=== PATIENT | female | born 1965 | race Caucasian/White ===

== ENCOUNTER 2020-05-18 10:41 | Emergency (ER) | payer OTHER ==
[2020-05-18] MEDS ORDERED: Sodium Chloride 0.9% 2.5 ML Syringe FLUSH PRN (11:07)
[2020-05-18] MEDS ORDERED: Sodium Chloride 0.9% 10 ML Syringe FLUSH PRN (11:07)
--- NOTE | 2020-05-18 11:11 | EDM.PDOC ---
ED HPI GENERAL MEDICAL PROBLEM - General Stated Complaint: CHEST PAIN Time Seen by Provider: 05/18/20 10:52 - History of Present Illness INITIAL COMMENTS - FREE TEXT/NARRATIVE: History of present illness: [] Patient had pounding palpitations on May 01 the antibiotic her for 2 days. She had 1 normal day and then after that she has had musculoskeletal type pain in the left chest. Is worse with movement to the left. Worse with using her left arm or holding weight with her left arm. It also gets worse when she walks or exerts herself or stands upright. It is better when she rests. There is no shortness of breath or diaphoresis. There is no nausea. The patient has no known injury. But when she tries to lift something with her left arm the pain is reproduced. Patient smoked from ages [age]. She has a very strong family history of multiple relatives with severe coronary vessel disease starting in her 30s. Treated for hypertension and cholesterol but she does not have a history of diabetes. She no longer smokes since age 27. Review of systems: As per history of present illness and below otherwise all systems reviewed and negative. Past medical history: As per history of present illness and as reviewed below otherwise noncontributory. Surgical history: As per history of present illness and as reviewed below otherwise noncontributory. Social history: No reported history of drug or alcohol abuse. Family history: As per history of present illness and as reviewed below otherwise noncontributory. Physical exam: Constitutional - well developed, well-nourished and in no acute distress HEENT - normocephalic, no evidence of trauma - external nose and mouth normal - no mass in neck and no JVD - mucosae moist EYES - full EOM, PERRL, no icterus - no evidence of inflammation, injection, or drainage Respiratory - no respiratory distress, equal bilateral expansion, lungs clear to auscultation and no abnormal lung sounds Cardiovascular - Regular Rhythm with S1 and S2 appreciated and no murmur, gallop or rub. GI - abdomen soft without distension or organomegaly - normal bowel sounds - no guard or rebound Musculoskeletal tenderness in the left chest wall in the area to the pain in the left breast. This reproduces her pain. She also reproduces the Viactiv resisted abduction and extension of the right left shoulder. No gross deformity of long bones or joints - no tenderness, swelling or edema Neurologic - Alert and oriented times four - CN II-XII grossly intact - motor sensory and coordination symmetrically normal Psychiatric - appropriate mood and affect with normal thought content Hematologic - No petechiae or purpura - mucosa appropriate color and sclera not pale - normal nail bed color and refill Integument - no rash or evidence of trauma - normal turgor Diagnostics: [] Therapeutics: [] Impression: [] Plan: [] Definitive disposition and diagnosis as appropriate pending reevaluation and review of above. chest Pain Score (Numeric/FACES): 6 - Related Data Allergies Allergy/AdvReac Type Severity Reaction Status Date / Time aspirin Allergy Rash Verified 05/18/20 11:18 codeine Allergy Cannot Verified 05/18/20 11:18 Remember Penicillins Allergy Difficulty Verified 05/18/20 11:18 Breathing MOLD Allergy Other Uncoded 05/18/20 11:18 Home Meds: Home Meds Lisinopril 5 tab PO DAILY 02/13/16 [History] Omeprazole 40 mg PO BID 02/13/16 [History] hydrOXYzine HCL [hydrOXYzine] 50 mg PO BEDTIME 02/13/16 [History] Past Medical History Cardiovascular History: Reports: Hypertension Respiratory History: Reports: Asthma Gastrointestinal History: Reports: Other (See Below) Other Gastrointestinal History: crohns - Past Surgical History Musculoskeletal Surgical History: Reports: Arthroscopic Knee Social & Family History - Family History Family Medical History: No Pertinent Family History - Caffeine Use Caffeine Use: Reports: Soda ED ROS GENERAL - Review of Systems Review Of Systems: Comprehensive ROS is negative, except as noted in HPI. ED EXAM, GENERAL - Physical Exam Exam: See Below Free Text/Narrative:: My physical exam as in the HPI Course - Vital Signs Text/Narrative:: 11:47 AM on review of the patient's risk factors her heart score would be high enough that every time she had any kind of chest complaints she had had to be admitted to the hospital for an anatomic study. However she is not smoking and had a normal catheterization about 7 years ago without much trouble since. Her chest wall pain is reproducible and very suggestive of pulled muscle. There is nothing in her history to assess as this is likely coronary vessel disease. The patient understands and I am to send her home with anti-inflammatories and [facility]. I think she had a unrelated palpitation on May 01 and she has it periodically and will [facility] for [facility]. Last Recorded V/S: Last Vital Signs Temp 36.4 C 05/18/20 10:41 Pulse 91 05/18/20 11:30 Resp 17 05/18/20 11:30 BP 137/76 05/18/20 11:30 Pulse Ox 95 05/18/20 11:30 - Orders/Labs/Meds Orders: Active Orders 24 hr Category Date Time Status EKG Documentation Completion [RC] AM Care 05/18/20 11:07 Active Chest 1V Frontal [CR] Stat Exams 05/18/20 11:08 Taken Sodium Chloride 0.9% [Saline Flush] Med 05/18/20 11:07 Active 10 ml FLUSH ASDIRECTED PRN Sodium Chloride 0.9% [Saline Flush] Med 05/18/20 11:07 Active 2.5 ml FLUSH ASDIRECTED PRN Saline Lock Insert [OM.PC] Stat Oth 05/18/20 11:07 Ordered Medication Orders Sodium Chloride (Sodium Chloride 0.9% 10 Ml Syringe) 10 ml FLUSH ASDIRECTED PRN PRN Reason: Keep Vein Open Last Admin: 05/18/20 11:18 Dose: 10 ml Documented by: JAZMINE Sodium Chloride (Sodium Chloride 0.9% 2.5 Ml Syringe) 2.5 ml FLUSH ASDIRECTED PRN PRN Reason: Keep Vein Open Last Admin: 05/18/20 11:18 Dose: 2.5 ml Documented by: JAZMINE Labs: Laboratory Tests 05/18/20 05/18/20 Range/Units 10:45 10:45 WBC 6.10 (4.0-11.0) K/uL RBC 4.90 (4.30-5.90) M/uL Hgb 15.0 (12.0-16.0) g/dL Hct 44.3 (36.0-46.0) % MCV 90.4 (80.0-98.0) fL MCH 30.6 (27.0-32.0) pg MCHC 33.9 (31.0-37.0) g/dL RDW Std Deviation 42.7 (28.0-62.0) fl RDW Coeff of Dorota 13 (11.0-15.0) % Plt Count 458 H (150-400) K/uL MPV 8.90 (7.40-12.00) fL Neut % (Auto) 59.5 (48.0-80.0) % Lymph % (Auto) 31.6 (16.0-40.0) % [place] % (Auto) 6.1 (0.0-15.0) % Eos % (Auto) 2.1 (0.0-7.0) % Baso % (Auto) 0.7 (0.0-1.5) % Neut # (Auto) 3.6 (1.4-5.7) K/uL Lymph # (Auto) 1.9 (0.6-2.4) K/uL [place] # (Auto) 0.4 (0.0-0.8) K/uL Eos # (Auto) 0.1 (0.0-0.7) K/uL Baso # (Auto) 0.0 (0.0-0.1) K/uL Nucleated RBC % 0.0 /100WBC Nucleated RBCs # 0 K/uL Sodium 140 (136-145) mmol/L Potassium 4.0 (3.5-5.1) mmol/L Chloride 103 (98-107) mmol/L Carbon Dioxide 25.4 (21.0-32.0) mmol/L BUN 14 (7.0-18.0) mg/dL Creatinine 1.0 (0.6-1.0) mg/dL Est Cr Clr Drug Dosing TNP Estimated GFR (MDRD) 58.2 ml/min Glucose 106 (74-106) mg/dL Calcium 9.8 (8.5-10.1) mg/dL Total Bilirubin 0.3 (0.2-1.0) mg/dL AST 24 (15-37) IU/L ALT 49 (14-63) IU/L Alkaline Phosphatase 96 (46-116) U/L Troponin I < 0.050 (0.000-0.056) ng/mL Total Protein 8.0 (6.4-8.2) g/dL Albumin 4.1 (3.4-5.0) g/dL Globulin 3.9 (2.6-4.0) g/dL Albumin/Globulin Ratio 1.1 (0.9-1.6) Lipase 109 (73-393) U/L Meds: Medications Generic Name Dose Route Start Last Admin Trade Name Venancio PRN Reason Stop Dose Admin Sodium Chloride 10 ml 05/18/20 11:07 05/18/20 11:18 Sodium Chloride 0.9% 10 Ml Syringe FLUSH 10 ml ASDIRECTED PRN Administration Keep Vein Open Sodium Chloride 2.5 ml 05/18/20 11:07 05/18/20 11:18 Sodium Chloride 0.9% 2.5 Ml Syringe FLUSH 2.5 ml ASDIRECTED PRN Administration Keep Vein Open Discontinued Medications Generic Name Dose Route Start Last Admin Trade Name Ryanq PRN Reason Stop Dose Admin Ketorolac Tromethamine 15 mg 05/18/20 11:16 05/18/20 11:17 Ketorolac 15 Mg/Ml Sdv IVPUSH 05/18/20 11:17 15 mg ONETIME ONE Administration Ketorolac Tromethamine Confirm 05/18/20 11:15 Ketorolac 15 Mg/Ml Sdv Administered 05/18/20 11:16 Dose 15 mg .ROUTE .STK-MED ONE Departure - Departure Time of Disposition: 11:46 Disposition: Home, Self-Care 01 Condition: Good Clinical Impression: Palpitations, Chest wall pain - Discharge Information Instructions: Palpitations, Chest Wall Pain, [id number] Referrals: [facility] [Primary Care Provider] - Additional Instructions: I have evaluated you for 2 events. On May 01 or thereabouts she had palpitations that were intense. [facility] may [facility] do [facility] Holter monitor or Zio patch. You also have musculoskeletal pain that is reproducible and I am not sure how you injured it or caused the inflammation but take it easy and use NSAIDs for that. Heat to the area may help since it has been going on for more than a week. [facility] - [facility] [address] [place] [address] [id number] [address] [id number] The following information is given to patients seen in the emergency department who are being discharged to home. This information is to outline your options for follow-up care. We provide all patients seen in our emergency department with a follow-up referral. The need for follow-up, as well as the timing and circumstances, are variable depending upon the specifics of your emergency department visit. If you don't have a primary care physician on staff, we will provide you with a referral. We always advise you to contact your personal physician following an emergency department visit to inform them of the circumstance of the visit and for follow-up with them and/or the need for any referrals to a consulting spe cialist. The emergency department will also refer you to a specialist when appropriate. This referral assures that you have the opportunity for follow-up care with a specialist. All of these measure are taken in an effort to provide you with optimal care, which includes your follow-up. Under all circumstances we always encourage you to contact your private physician who remains a resource for coordinating your care. When calling for follow-up care, please make the office aware that this follow-up is from your recent emergency room visit. If for any reason you are refused follow-up, please contact the [facility] Emergency Department at and asked to speak to the emergency department charge nurse. Sepsis Event Note (ED) - Focused Exam Vital Signs: Vital Signs Temp Pulse Resp BP Pulse Ox 05/18/20 11:30 91 17 137/76 95 05/18/20 10:41 36.4 C 99 17 150/113 H 96 - My Orders Last 24 Hours: My Active Orders 05/18/20 11:07 EKG Documentation Completion [RC] AM Sodium Chloride 0.9% [Saline Flush] 10 ml FLUSH ASDIRECTED PRN Sodium Chloride 0.9% [Saline Flush] 2.5 ml FLUSH ASDIRECTED PRN Saline Lock Insert [OM.PC] Stat 05/18/20 11:08 Chest 1V Frontal [CR] Stat - Assessment/Plan Last 24 Hours: My Active Orders 05/18/20 11:07 EKG Documentation Completion [RC] AM Sodium Chloride 0.9% [Saline Flush] 10 ml FLUSH ASDIRECTED PRN Sodium Chloride 0.9% [Saline Flush] 2.5 ml FLUSH ASDIRECTED PRN Saline Lock Insert [OM.PC] Stat 05/18/20 11:08 Chest 1V Frontal [CR] Stat
[2020-05-18] MEDS ORDERED: Ketorolac 15 MG/ML SDV ONE (11:15)
[2020-05-18] MEDS ORDERED: Ketorolac 15 MG/ML SDV IVPUSH ONE (11:16)
[2020-05-18 11:25] LABS: BLOOD UREA NITROGEN,BUN 14 mg/dL (7.0-18.0); CARBON DIOXIDE,CO2 25.4 mmol/L (21.0-32.0); CHLORIDE,CL 103 mmol/L (98-107); GLUCOSE RANDOM 106 mg/dL (74-106); LIPASE 109 U/L (73-393); SODIUM,NA 140 mmol/L (136-145)
--- NOTE | 2020-05-18 11:53 | CR ---
INDICATION: Chest pain TECHNIQUE: Chest 1 view COMPARISON: None FINDINGS: Cardiovascular and mediastinum: Heart size and vasculature are normal in caliber and appearance. Lungs and pleural spaces: Lungs are clear. No sign of infiltrate or mass. No sign of pleural effusion. No pneumothorax. Bones and soft tissues: No significant findings. IMPRESSION: No acute or significant findings. Dictated by Yovanny Salmeron MD @ May 18 2020 11:52AM Signed by Dr. Yovanny Salmeron @ May 18 2020 11:52AM
[2020-05-19 07:35] VITALS: BP 138/97; PULSE 88
== END 2020-05-18 11:58 | disposition home or self-care (01) ==
LOC: MW.ED 10:41
DX: R07.89 Other chest pain (principal); R00.2 Palpitations; I10 Essential (primary) hypertension; J45.909 Unspecified asthma, uncomplicated; Z87.891 Personal history of nicotine dependence; Z88.8 Allergy status to other drugs, medicaments and biological substances; Z88.5 Allergy status to narcotic agent; Z88.0 Allergy status to penicillin; Z91.048 Other nonmedicinal substance allergy status; Z79.899 Other long term (current) drug therapy
CPT/HCPCS: 71045; 80053; 83690; 84484; 85025; 93005; 96374; 99285; J1885; 93010; 99283

== ENCOUNTER 2021-05-24 10:21 | Observation (INO) | payer OTHER ==
[2021-05-24] MEDS ORDERED: Sodium Chloride 0.9% 2.5 ML Syringe FLUSH PRN (10:28)
[2021-05-24] MEDS ORDERED: Sodium Chloride 0.9% 20 ML SDV IV PRN (10:28)
[2021-05-24] MEDS ORDERED: Sodium Chloride 0.9% 10 ML Syringe FLUSH PRN (10:28)
[2021-05-24 11:00] LABS: BLOOD UREA NITROGEN,BUN 10 mg/dL (7.0-18.0); CARBON DIOXIDE,CO2 26.1 mmol/L (21.0-32.0); CHLORIDE,CL 103 mmol/L (98-107); GLUCOSE RANDOM 114 mg/dL (74-106); POTASSIUM,K 3.8 mmol/L (3.5-5.1); SODIUM,NA 139 mmol/L (136-145)
[2021-05-24] MEDS ORDERED: Clopidogrel 75 MG Tab PO ONE (11:33)
[2021-05-24 12:29] LABS: CORONAVIRUS COVID-19 NAA NEGATIVE (NEGATIVE); INFLUENZA A NAA NEGATIVE (NEGATIVE); INFLUENZA B NAA NEGATIVE (NEGATIVE)
[2021-05-24] MEDS ORDERED: Ondansetron 4 MG/2 ML SDV ONE (14:38)
[2021-05-24] MEDS ORDERED: Ondansetron 4 MG/2 ML SDV IVPUSH ONE (14:38)
[2021-05-24] MEDS ORDERED: Sodium Chloride 0.9% 1,000 ML IV ONE (14:42)
[2021-05-24] MEDS ORDERED: Iopamidol 755 MG/ML 500 ML Multipack Bottle IVPUSH ONE (18:53)
[2021-05-24] MEDS: OMEPRAZOLE 40 MG PO SCH (20:51)
[2021-05-24] MEDS: CYCLOBENZAPRINE 10 MG PO PRN (20:51)
[2021-05-24] MEDS ORDERED: HYDROXYZINE HCL 50 MG PO SCH (21:00)
[2021-05-24] MEDS ORDERED: Simvastatin 20 MG Tab ** OWN MED PO SCH (21:00)
[2021-05-24] MEDS ORDERED: Acetaminophen 325 MG Tab PO PRN (22:00)
[2021-05-24] MEDS: Famotidine 20 MG Tab PO SCH (22:00)
[2021-05-25 06:43] LABS: CARBON DIOXIDE,CO2 26.3 mmol/L (21.0-32.0); POTASSIUM,K 4.5 mmol/L (3.5-5.1)
[2021-05-25] MEDS: OMEPRAZOLE 40 MG PO SCH (08:49)
[2021-05-25] MEDS: Clopidogrel 75 MG Tab PO SCH (08:49)
[2021-05-25] MEDS ORDERED: OMEPRAZOLE 40 MG PO SCH (17:30)
[2021-05-25] MEDS ORDERED: Simvastatin 20 MG Tab ** OWN MED PO SCH (18:00)
[2021-05-25] MEDS ORDERED: HYDROXYZINE HCL 50 MG PO SCH (18:00)
[2021-05-25] MEDS: Famotidine 20 MG Tab PO SCH (18:28)
[2021-05-25] MEDS: CYCLOBENZAPRINE 10 MG PO PRN (18:28)
[2021-05-26] MEDS ORDERED: OMEPRAZOLE 40 MG PO SCH (07:00)
[2021-05-26] MEDS ORDERED: Gadobenate Dimeglumine 529 MG/ML 20 ML SDV IVPUSH STA (07:34)
[2021-05-26] MEDS: Clopidogrel 75 MG Tab PO SCH (09:23)
[2021-05-26] MEDS ORDERED: Lisinopril 5 MG Tab PO SCH (10:30)
[2021-05-26 11:35] VITALS: BP 154/90; PULSE 83
[2021-05-26] MEDS ORDERED: HYDROXYZINE HCL 50 MG PO SCH (18:00)
== END 2021-05-26 12:50 | disposition home or self-care (01) ==
LOC: MW.ED 10:21 → MW.MS 15:06 → UNDOADMOB 15:17 → MW.MS 15:17
PROVIDERS: ADMIT Internal Medicine; ATTEND Internal Medicine
DX: G45.9 Transient cerebral ischemic attack, unspecified (principal); R07.2 Precordial pain; E70.0 Classical phenylketonuria; I10 Essential (primary) hypertension; J45.909 Unspecified asthma, uncomplicated; Z87.891 Personal history of nicotine dependence; Z88.0 Allergy status to penicillin; Z88.8 Allergy status to other drugs, medicaments and biological substances; Z88.5 Allergy status to narcotic agent; Z91.030 Bee allergy status; Z79.899 Other long term (current) drug therapy; Z98.890 Other specified postprocedural states; Z20.822 Contact with and (suspected) exposure to COVID-19
CPT/HCPCS: 0240U; 36415; 70450; 70496; 70498; 70553; 80048; 80053; 80061; 82947; 83036; 84484; 85025; 85610; 85730; 93005; 93306; 96374; 99285; A9270; A9577; G0378; J2405; J7030; Q9967